=== PATIENT | female | born 1990 | race Caucasian/White ===

== ENCOUNTER 2017-08-19 08:40 | Emergency (ER) | payer OTHER ==
[~2017-08-19] VITALS: Ht 165.1 cm; Wt 99.1 kg
[~2017-08-19 08:40] MED LIST: BIRTH CONTROL; Medrol PO; Motrin PO; PEN-VEE K,VEET500 MG PO; PHENERGAN-CODE120 ML PO; Percocet 5/325,Endoc PO; ULTRAM50 MG PO; ZITHROMAX Z-PA250 MG PO
[2017-08-19] MEDS ORDERED: PREDNISONE20 MG PO (09:04)
[2017-08-19 09:15] VITALS: BP 149/88
== END 2017-08-19 09:15 | disposition home or self-care (01) ==
LOC: EME 08:40
DX: R21 Rash and other nonspecific skin eruption (principal); L29.9 Pruritus, unspecified; F17.200 Nicotine dependence, unspecified, uncomplicated
CPT/HCPCS: 99281; 99283; J2930